=== PATIENT | female | born 1945 | race African-American/Black ===

== ENCOUNTER 2024-06-13 06:17 | Emergency (ER) | payer OTHER ==
[~2024-06-13] VITALS: Ht 167.6 cm; Wt 68.0 kg
[2024-06-13 06:23] VITALS: O2SAT 99
[2024-06-13 07:55] LABS: HEMOGLOBIN. 12.3 g/dL (12.0-16.0); MEAN CORPUSCULAR HGB CONC 33.1 g/dL (31.0-37.0); MEAN CORPUSCULAR VOLUME 96.6 fL (81.0-99.0); MEAN PLATELET VOLUME 7.8 fl (7.4-10.4); PLATELET 262 x1000/uL (130-400); RED BLOOD CELL COUNT 3.83 mill/uL (4.2-5.4); RED CELL DISTRIBUTION WIDTH 14.4 % (11.6-14.6); WHITE BLOOD COUNT 16.6 x1000/uL (4.5-11.0)
[2024-06-13] MEDS: KETOROLAC 15MG/ML VIAL IV ONE (07:57)
[2024-06-13] MEDS: ONDANSETRON HCL 4MG/2ML INJ IV ONE (07:57)
[2024-06-13 08:06] LABS: CHLORIDE 93 mEq/L (98-107); POTASSIUM 3.4 mEq/L (3.5-5.1); SODIUM 130 mEq/L (136-145)
[2024-06-13 08:07] LABS: CALCIUM 9.8 mg/dL (8.7-10.4); CARBON DIOXIDE 26 mEq/L (21-32)
[2024-06-13 08:12] LABS: CREATININE 0.8 mg/dL (0.6-1.0); GLUCOSE 145 mg/dL (70-105); UREA NITROGEN BLOOD 12 mg/dL (9-23)
[2024-06-13 08:13] LABS: TROPONIN I HIGH SENSITIVITY < 4 ng/L (3.0-34)
[2024-06-13 08:21] LABS: DIFFERENTIAL COMMENT 1
[2024-06-13] MEDS: ASPIRIN 325MG EC TABLET PO ONE (09:17)
[2024-06-13] MEDS ORDERED: DIPHENHYDRAMINE 50MG/ML VIAL IV SCH (10:00)
[2024-06-13] MEDS ORDERED: DIPHENHYDRAMINE 50MG/ML VIAL IV PRN (10:15)
[2024-06-13 10:21] LABS: PLATELET ESTIMATE NORMAL
[2024-06-13] MEDS: DIPHENHYDRAMINE 50MG/ML VIAL IV PRN (10:32)
[2024-06-13 12:12] VITALS: BP 165/85; PULSE 80; RESP 15; TEMP 37.2; O2SAT 100
== END 2024-06-13 12:05 | disposition short-term general hospital (02) ==
LOC: ER 06:17 → EDBD 06:17 → CANBEDREQ 11:31 → ER 12:05
DX: R07.89 Other chest pain (principal); I10 Essential (primary) hypertension; Z88.2 Allergy status to sulfonamides
CPT/HCPCS: 99285; 96374; 96375; 71045; 80048; 83880; 85025; 84484; 36415; 93005; J1885; J1200; J2405